=== PATIENT | female | born 1965 | race Caucasian/White ===

== ENCOUNTER 2019-07-05 23:49 | Observation (INO) | payer OTHER ==
--- NOTE | 2019-07-06 00:39 | P.HP ---
Certification for Inpatient Patient admitted to: Observation With expected LOS: <2 Midnights Patient will require the following post-hospital care: None Practitioner: I am a practitioner with admitting privileges, knowledge of patient current condition, hospital course, and medical plan of care. Services: Services provided to patient in accordance with Admission requirements found in Title 42 Section 412.3 of the Code of Federal Regulations Patient History Date of Service: 07/06/19 Reason for admission: Left lower extremity swelling and pain History of Present Illness: 53-year-old woman with a history of diabetes mellitus type 2, hypertension, hypercholesterolemia, chronic back pain, status post recent spinal fusion surgery, reports left lower extremity swelling and pain which has been present for 2 days. Patient called her spinal surgeons office to get refills for her medications. She complained of the left lower extremity swelling and she was directed to go to emergency department for evaluation. Patient was seen at [facility] where she was noted to have severely elevated D-dimer. Venous Doppler of the left lower extremity reported from acute femoral vein DVT. Patient was given a shot of Lovenox. Dr. Duron called for patient to be transferred to [facility] to be hospitalized for further management. At the moment patient is able to ambulate without support and denied poor functional status after the spine surgery. She remembers sitting down for several hours most of the time after the surgery. Allergies cephalexin [From Keflex] Allergy (Verified 07/06/19 00:38) Anaphylaxis Home medications list reviewed: Yes Home Medications: Atorvastatin Calcium 10 mg PO BEDTIME 07/06/19 Cyclobenzaprine [Flexeril*] 10 mg PO TID PRN 07/06/19 Hydrocodone 5/APAP 325 [[place] 5/325*] 1 tab PO Q4H PRN 07/06/19 Lisinopril/Hydrochlorothiazide [Lisinopril-Hctz 20-25 mg Tab] 1 tab PO BID 07/06 Omeprazole [Prilosec] 40 mg PO BID 07/06/19 Varenicline Tartrate [Chantix] 1 mg PO BID 07/06/19 - Past Medical/Surgical History Diabetic: Yes -: Sciatica -: Intervertebral disk disease -: Chronic back pain -: Diabetes mellitus type 2 -: Hypertension -: Hypercholesteremia -: GERD -: Multiple spine surgeries -: Knee surgery -: Hernia repair -: Neck surgery -: Oophorectomy - Family History Father -: Diabetes Mother -: Diabetes - Social History Smoking Status: Current every day smoker Alcohol use: Yes CD- Drugs: No Place of Residence: Home Review of Systems Other: General: No fever, no malaise, no unintentional weight loss. Eyes: No eye discharge, Respiratory: No cough, no shortness of breath. CVS: No chest pain, no palpitation, no lightheadedness. GI: No abdominal pain, no nausea no vomit, no constipation, no diarrhea. Genitourinary: No dysuria, no urinary frequency, no incontinence, no hematuria. Musculoskeletal: No joint pains, or joint swelling, no gait instability. Neurology: No headache, no asymmetric, weakness, no problem with swallowing. Except as documented, all other systems reviewed and negative. Physical Examination - Vital Signs Temperature: 98.4 F Blood Pressure: 121/64 Pulse: 115 Respirations: 16 Pulse Ox (%): 95 - Physical Exam General: Alert, In no apparent distress, Oriented x3 HEENT: Atraumatic, Normocephalic, PERRLA, Mucous membr. moist/pink Neck: Supple, JVD not distended Respiratory: Clear to auscultation bilaterally, Normal air movement Cardiovascular: Normal pulses, No murmurs, Other (Tachycardia), Edema (1+ left lower extremity edema) Capillary refill: <2 Seconds Gastrointestinal: Normal bowel sounds, Soft and benign, Non-distended, No tenderness Musculoskeletal: Swelling (Left lower extremity swelling extending from the foot to the thigh) Integumentary: Erythema (Left lower extremity) Neurological: Normal speech, Normal strength at 5/5 x4 extr, Cranial nerves 3- 12 intact - Studies Hemoglobin: 12.1 Platelet: 394 Creatinine: 0.6 Imagings Data: EKG: Sinus tachycardia Venous Doppler: Deep vein thrombosis within the left superficial femoral and left common femoral veins. Assessment and Plan - Problems (Diagnosis) (1) Acute deep vein thrombosis (DVT) Current Visit: Yes Status: Acute (2) Diabetes mellitus type 2 in obese Current Visit: Yes Status: Acute (3) Essential hypertension Current Visit: Yes Status: Acute (4) Hypocholesterolemia Current Visit: Yes Status: Acute (5) History of spinal surgery Current Visit: Yes Status: Acute (6) Tobacco use Current Visit: Yes Status: Acute - Plan Admit to [facility] with telemetry Start full-dose Lovenox anticoagulation. Monitor CBC Pain management with IV morphine, and [place] p.r.n. Obtain CTA thorax to rule out pulmonary embolism given tachycardia Bedrest with bathroom privileges for the next 24 hours. Keep left lower extremity elevated Continue Janumet for diabetes Continue lisinopril for hypertension. - Advance Directives Does patient have a Living Will: No Does patient have a Durable POA for Healthcare: No
[2019-07-06] MEDS ORDERED: ONDANSETRON 4 MG/2 ML VIAL IV PRN (00:49)
[2019-07-06] MEDS ORDERED: ACETAMINOPHEN 500 MG TAB PO PRN (00:49)
[2019-07-06] MEDS: NA CHLORIDE 0.9% 1,000 ML IV SCH ×2 (01:29→11:41)
[2019-07-06 01:34] LABS: Protime INR 1.08
[2019-07-06 06:49] LABS: Urine Appearance CLEAR; Urine Bilirubin NEGATIVE (NEG); Urine Blood NEGATIVE (NEG); Urine Color YELLOW; Urine Glucose NEGATIVE (NEG); Urine Protein NEGATIVE (NEG); Urine Urobilinogen 0.2 mg/dL (0.2-1.0)
[2019-07-06 06:50] LABS: Urine Microscopic Reflex ORDER UMIC
[2019-07-06 07:00] LABS: Urine Bacteria 20-50 /HPF (<20); Urine Culture Reflex Order REFLEXED; Urine RBC <5 /HPF (NONE SEEN)
[2019-07-06] MEDS: MORPHINE 2 MG/ML SYR IV PRN ×3 (07:18→20:43)
[2019-07-06] MEDS: INSULIN -REGULAR HUMAN 50 UNIT/0.5 ML ML SQ SCH ×4 (07:30→20:57)
--- NOTE | 2019-07-06 08:13 | RAD REPORT ---
EXAM DESCRIPTION: CT - Chest For Pe Angio - 07/06/2019 7:40 am CLINICAL HISTORY: Acute left LE DVT COMPARISON: No comparisons TECHNIQUE: Dynamically enhanced 3 mm thick images of the chest were obtained during administration o f approximately 150mL Isovue 370 IV contrast. Coronal and oblique MIP reconstruction images were gene rated and reviewed. Exam utilizes a protocol to evaluate the pulmonary arterial tree. All CT scans are performed using dose optimization technique as appropriate and may include automated exposure control or mA/KV adjustment according to patient size. FINDINGS: No pulmonary emboli are identified. The aorta as imaged shows no acute or suspicious finding. No pericardial thickening or effusion. No infiltrate or mass in the lung parenchyma. No pleural effusion or pleural thickening. No mediastinal or hilar suspicious masses. No chest wall masses or abnormal axillary lymphadenopathy. Limited upper abdomen imaging shows diffuse fatty infiltration of the liver. IMPRESSION: No pulmonary emboli identified. No other significant chest finding. Diffuse fatty infiltration of a partially imaged liver.
[2019-07-06] MEDS: CYCLOBENZAPRINE 10 MG TAB PO SCH ×3 (08:14→20:57)
[2019-07-06] MEDS: ENOXAPARIN 60 MG/0.6 ML SQ SCH ×2 (08:15→20:42)
[2019-07-06] MEDS: CIPROFLOXACIN 400mg IV 400 MG/200 ML BAG IV SCH ×2 (11:43→20:41)
--- NOTE | 2019-07-06 11:48 | PN ---
Date of Progress Note: 07/06/2019 Subjective: Patient is seen and examined, chart reviewed, and case discussed with RN. Patient complaining of some swelling and pain in her left lower extremity. Patient had recent surgery 3 weeks ago on her spine. Medications List: Reviewed. Physical Examination: Vital Signs: Temperature 98.4, heart rate 115, blood pressure 121/64, respirations 16, O2 95% on room air. General: Awake, alert, oriented x3. No acute distress. CV: S1, S2. Sinus tachycardia. Peripheral pulses present. Respiratory: Moving air well bilaterally. No wheezing or stridor. No use of accessory muscles. Gastrointestinal: Abdomen is soft, nontender, nondistended. Positive bowel sounds. No guarding or rigidity. Extremities: No clubbing or cyanosis. Patient has edema of the left lower extremity. Right lower extremity does not have any edema. Neurologic: Nonfocal. Cranial nerves 2 through 12 intact grossly. No focal neurological deficit. Speech is normal. Laboratory Data: UA: Negative nitrite, 2+ leukocyte esterase, 20-50 WBC, 10- 20 squamous epithelial cells, 20-50 urine bacteria. INR 1.08. Urine cultures pending. Assessment And Plan: A 53-year-old female with: 1. Acute deep vein thrombosis of the left common femoral vein. As the patient is on therapeutic Lovenox, we will need to switch over to oral anticoagulation. Deep vein thrombosis is likely provoked due to history of recent surgery. 2. Diabetes mellitus type 2 with hyperglycemia. We will continue with sliding scale insulin and monitor blood glucose levels. 3. Essential hypertension, stable. We will resume home medications as appropriate. 4. Mixed hyperlipidemia. Continue statin. 5. History of recent spinal surgery and chronic back pain. Patient is on chronic narcotics and muscle relaxants. Stable. 6. Nicotine dependence with cigarette smoking. Counseled. 7. Fatty liver disease. Counseled. 8. Obesity. Plan, we will continue to monitor. 9. Acute cystitis without hematuria. We will start on Cipro and follow up on urine culture. Disposition: Likely discharge in 24-48 hours depending on clinical response on oral anticoagulants. ADDENDUM: Adjust dose of lovenox SA/MODL Voice ID: [id number] Report ID: [id number] [facility]
[2019-07-06] MEDS: HYDROCODONE/APAP 5/325 MG TAB PO PRN (15:24)
[2019-07-06] MEDS: PANTOPRAZOLE 40MG TABLET PO SCH (17:07)
[2019-07-06] MEDS: ATORVASTATIN 10 MG TAB PO SCH (20:41)
[2019-07-06] MEDS: hydroCHLOROthiazide 25 MG TAB PO SCH (20:42)
[2019-07-06] MEDS: LISINOPRIL 20 MG TAB PO SCH (20:42)
[2019-07-06] MEDS: HOME MED 1 EA UNK (Varenicline Tartrate [Chantix] 1 MG) PO SCH (20:58)
[2019-07-07 00:33] VITALS: BMI 37.2
[2019-07-07] MEDS: NA CHLORIDE 0.9% 1,000 ML IV SCH ×3 (00:59→17:00)
[2019-07-07] MEDS: HYDROCODONE/APAP 5/325 MG TAB PO PRN ×3 (03:17→17:22)
[2019-07-07] MEDS: MORPHINE 2 MG/ML SYR IV PRN ×3 (05:42→20:29)
[2019-07-07 07:08] LABS: Absolute Lymphocytes (CBC) 1.5 K/uL (0.7-4.9); Basophils % 0.6 % (0-1.3); Hematocrit 28.7 % (36.0-45.0); Lymphocytes % 25.1 % (15.3-44.8); MPV 9.2 fL (7.6-11.3); RBC Red Blood Cell Count 3.37 M/uL (3.86-4.86)
[2019-07-07 07:16] LABS: BUN Blood Urea Nitrogen 3 mg/dL (7-18); Bicarbonate 31 mmol/L (21-32); Glucose Level 140 mg/dL (74-106); Magnesium 1.8 mg/dL (1.8-2.4); Phosphorus 3.1 mg/dL (2.5-4.9); Potassium 3.8 mmol/L (3.5-5.1); Sodium Level 142 mmol/L (136-145)
[2019-07-07] MEDS: INSULIN -REGULAR HUMAN 50 UNIT/0.5 ML ML SQ SCH ×4 (07:30→20:20)
[2019-07-07] MEDS ORDERED: MAGNESIUM SULFATE 1 gm IVPB 1 GM/100 ML BAG IV ONE ×2 (09:00→15:30)
[2019-07-07] MEDS ORDERED: POTASSIUM CL SA 10 MEQ TAB PO ONE (09:00)
[2019-07-07] MEDS: HOME MED 1 EA UNK (Varenicline Tartrate [Chantix] 1 MG) PO SCH ×2 (09:00→20:20)
[2019-07-07] MEDS: CYCLOBENZAPRINE 10 MG TAB PO SCH ×3 (09:40→20:18)
[2019-07-07] MEDS: PANTOPRAZOLE 40MG TABLET PO SCH ×2 (09:40→17:19)
[2019-07-07] MEDS: LISINOPRIL 20 MG TAB PO SCH ×2 (09:41→20:18)
[2019-07-07] MEDS: hydroCHLOROthiazide 25 MG TAB PO SCH ×2 (09:41→20:18)
[2019-07-07] MEDS: CIPROFLOXACIN 400mg IV 400 MG/200 ML BAG IV SCH ×2 (09:42→20:17)
[2019-07-07] MEDS: ENOXAPARIN 60 MG/0.6 ML SQ SCH (09:42)
--- NOTE | 2019-07-07 11:33 | PN ---
Date of Progress Note: 07/07/2019 Subjective: Patient seen and examined. Chart reviewed and case discussed with RN. Family at the bedside. Treatment plan explained, all questions answered. Patient's swelling is still very significant. Patient has dull pain. Patient may need transfer for thrombectomy if not improving. Medications: List reviewed. Physical Examination: Vital Signs: Temperature 97.6, heart rate 95, blood pressure 118/59, respirations 18, O2 95% on room air. General: Awake, alert, oriented x3, in some mild distress, obese female. CV: S1, S2. Regular rate and rhythm. Peripheral pulses present. Respiratory: Moving air well bilaterally. No wheezing or stridor. No use of accessory muscles. Gastrointestinal: Abdomen is soft, nontender, nondistended. Positive bowel sounds. Extremities: No clubbing or cyanosis. Patient has edema of the left lower extremity. Neurologic: Nonfocal sensation, intact to light touch. Laboratory Data: Sodium 142, potassium 3.8, chloride 107, CO2 31, BUN 3, creatinine 0.55, glucose 140, calcium 8.7, phosphorus 3.1, magnesium 1.8. WBC 5.8, H and H 10.7 and 28.7, platelets 249. Urine culture growing out mixed krystian. Assessment And Plan: A 53-year-old female with: 1. Acute deep vein thrombosis of the left common femoral vein. Continue with therapeutic Lovenox. Edema is not improving. Patient continues to have pain. This is likely a provoked deep vein thrombosis due to history of recent surgery and nonambulatory status. We will measure calf and thigh daily Doppler pulses. Possibility of thrombectomy if not improving. . Patient had incorrect weight placed in chart and therefore pharmacy dosed Lovenox at 60 mg will adjust to 100 mg. Patient has been updated. Charge nurse notified 2. Diabetes mellitus type 2 with hyperglycemia. We will continue with sliding scale insulin and monitor blood glucose levels. 3. Essential hypertension, stable. Patient currently somewhat hypotensive. We will hold blood pressure medications for systolic less than 90. 4. Mixed hyperlipidemia. Continue statin. 5. History of recent spinal surgery and chronic back pain. Patient on chronic narcotics and muscle relaxants, stable. Incision sites clean, dry, intact. 6. Nicotine dependence with cigarette smoking, counseled. 7. Fatty liver disease. 8. Obesity, BMI 37. Counseled. 9. Acute cystitis without hematuria. Continue Cipro. Cultures pending, no growth to date. If no improvement, may need transfer for thrombectomy. /ANIL Voice ID: [id number] Report ID: [id number] [facility]
[2019-07-07] MEDS: ATORVASTATIN 10 MG TAB PO SCH (20:17)
[2019-07-07] MEDS: ENOXAPARIN 100 MG/ML SYR SQ SCH (20:19)
[2019-07-08 02:14] VITALS: O2SAT 96
[2019-07-08] MEDS: HYDROCODONE/APAP 5/325 MG TAB PO PRN ×3 (02:53→18:44)
[2019-07-08 04:30] LABS: BUN Blood Urea Nitrogen 2 mg/dL (7-18); Bicarbonate 31 mmol/L (21-32); Glucose Level 167 mg/dL (74-106); Magnesium 1.6 mg/dL (1.8-2.4); Potassium 3.4 mmol/L (3.5-5.1); Sodium Level 141 mmol/L (136-145)
[2019-07-08] MEDS: NA CHLORIDE 0.9% 1,000 ML IV SCH ×2 (06:42→13:00)
[2019-07-08] MEDS: INSULIN -REGULAR HUMAN 50 UNIT/0.5 ML ML SQ SCH ×3 (07:30→16:30)
[2019-07-08] MEDS: HOME MED 1 EA UNK (Varenicline Tartrate [Chantix] 1 MG) PO SCH (09:00)
[2019-07-08] MEDS: ENOXAPARIN 100 MG/ML SYR SQ SCH ×2 (09:43→19:43)
[2019-07-08] MEDS: PANTOPRAZOLE 40MG TABLET PO SCH ×2 (09:43→16:50)
[2019-07-08] MEDS: LISINOPRIL 20 MG TAB PO SCH (09:43)
[2019-07-08] MEDS: hydroCHLOROthiazide 25 MG TAB PO SCH (09:43)
[2019-07-08] MEDS: CYCLOBENZAPRINE 10 MG TAB PO SCH ×2 (09:44→13:59)
[2019-07-08] MEDS: CIPROFLOXACIN 400mg IV 400 MG/200 ML BAG IV SCH (09:44)
[2019-07-08] MEDS: MORPHINE 2 MG/ML SYR IV PRN ×2 (09:47→16:49)
[2019-07-08 16:43] VITALS: BP 173/88; TEMP 98.4
--- NOTE | 2019-07-08 17:38 | PN ---
Date of Progress Note: 07/08/2019 Subjective: Patient seen and examined. Chart reviewed and case discussed with RN. Patient has had improvement in her swelling. Pain is significantly improved. Medications: List reviewed. Physical Examination: Vital Signs: Temperature 97.3, heart rate 91, blood pressure 135/83, respirations 17, O2 94% on room air. General: Awake, alert, oriented x3. Obese female, CV: S1, S2. Regular rate and rhythm. Peripheral pulses present. Respiratory: Moving air well bilaterally. No wheezing or stridor. No use of accessory muscles. Gastrointestinal: Abdomen is soft, nontender, nondistended. Positive bowel sounds. Extremities: No clubbing or cyanosis. Edema of the left lower extremity, improving. Neurologic: Nonfocal. Laboratory Data: Sodium 141, potassium 3.4, chloride 105, CO2 of 31, BUN 2, creatinine 0.63, glucose 167, calcium 8.7, magnesium 1.6. Urine culture growing out mixed krystian. Assessment: A 53-year-old female with; 1. Acute deep venous thrombosis of the left common femoral vein. Continue with therapeutic Lovenox. Edema is significantly improved. The pain is improving as well. No need for thrombectomy. 2. Diabetes mellitus type 2 with hyperglycemia. We will continue sliding scale insulin and monitor blood glucose levels. Stable. 3. Essential hypertension. Stable. Hold blood pressure medications for blood pressure less than 90 systolic, currently in the 130s systolic. 4. Mixed hyperlipidemia. Continue statin. 5. History of recent spinal surgery and chronic back pain. We will continue on narcotics and muscle relaxants. Incision site clean, dry, intact. 6. Nicotine dependence with cigarette smoking. Counseled. 7. Fatty liver disease. 8. Obesity, BMI>30 9. Acute cystitis without hematuria, likely asymptomatic bacteriuria. Cultures show mixed krystian. We will discontinue Cipro. Plan: Likely discharge if continues to improve. Check pulses and neurovascular assessment of the left lower extremity. Doppler pulses if necessary, measure thigh and calf daily. Switch to oral anticoagulant on discharge. /ANIL Voice ID: [id number] Report ID: [id number] [facility]
--- NOTE | 2019-07-15 08:07 | P.DS ---
Discharge Date: 07/08/19 Disposition: ROUTINE DISCHARGE Discharge Condition: FAIR Reason for Admission: Left lower extremity swelling and pain Brief History of Present Illness: 53-year-old woman with a history of diabetes mellitus type 2, hypertension, hypercholesterolemia, chronic back pain, status post recent spinal fusion surgery, reports left lower extremity swelling and pain which has been present for 2 days. Patient called her spinal surgeons office to get refills for her medications. She complained of the left lower extremity swelling and she was directed to go to emergency department for evaluation. Patient was seen at [facility] where she was noted to have severely elevated D-dimer. Venous Doppler of the left lower extremity reported from acute femoral vein DVT. Patient was given a shot of Lovenox. Dr. Lobo called for patient to be transferred to [facility] to be hospitalized for further management. At the moment patient is able to ambulate without support and denied poor functional status after the spine surgery. She remembers sitting down for several hours most of the time after the surgery. Hospital Course: Patient received her last shot of Lovenox this evening and will be discharged home. She will continue with her Xarelto at home. Follow-up with her PCP in 1- 2 weeks. Vital Signs/Physical Exam: Temp Pulse Resp BP Pulse Ox 98.4 F 107 H 18 173/88 H 96 07/08/19 16:00 07/08/19 16:00 07/08/19 17:19 07/08/19 16:00 07/08/19 17:19 General: Alert, In no apparent distress, Oriented x3 Laboratory Data at Discharge: WBC 5.8 K/uL (4.3-10.9) 07/07/19 05:58 Hgb 9.7 g/dL (12.0-15.0) L 07/07/19 05:58 Hct 28.7 % (36.0-45.0) L 07/07/19 05:58 Plt Count 249 K/uL (152-406) 07/07/19 05:58 PT 12.7 SECONDS (9.5-12.5) H 07/06/19 01:13 INR 1.08 07/06/19 01:13 Sodium 141 mmol/L (136-145) 07/08/19 03:31 Potassium 3.4 mmol/L (3.5-5.1) L 07/08/19 03:31 BUN 2 mg/dL (7-18) L 07/08/19 03:31 Creatinine 0.63 mg/dL (0.55-1.3) 07/08/19 03:31 Glucose 167 mg/dL (74-106) H 07/08/19 03:31 Phosphorus 3.1 mg/dL (2.5-4.9) 07/07/19 05:58 Magnesium 1.6 mg/dL (1.8-2.4) L 07/08/19 03:31 Home Medications: Atorvastatin Calcium 10 mg PO BEDTIME 07/06/19 Cyclobenzaprine [Flexeril*] 10 mg PO TID PRN 07/06/19 Hydrocodone 5/APAP 325 [[place] 5/325*] 1 tab PO Q4H PRN 07/06/19 Lisinopril/Hydrochlorothiazide [Lisinopril-Hctz 20-25 mg Tab] 1 tab PO BID 07/06 Omeprazole [Prilosec] 40 mg PO BID 07/06/19 Varenicline Tartrate [Chantix] 1 mg PO BID 07/06/19 Rivaroxaban [Xarelto] 15 mg PO BID #40 tablet 07/08/19 Rivaroxaban [Xarelto] 20 mg PO DAILY #30 tablet 07/08/19 New Medications: Rivaroxaban [Xarelto] 15 mg PO BID #40 tablet Rivaroxaban [Xarelto] 20 mg PO DAILY #30 tablet Patient Discharge Instructions: f/up w PCP in 2-3 days. 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 Return to ER for worsening condition Diet: ADA Activity: Ad preeti Time spent managing pt's care (in minutes): 25
== END 2019-07-08 20:05 | disposition home or self-care (01) ==
LOC: INTOOBSV 23:59 → OBSVTOIN 23:59 → 4TH 23:59 → INTOOBSV 07-07 09:57 → OBSVTOIN 07-07 09:57
PROVIDERS: ADMIT Internal Medicine; ATTEND Internal Medicine
DX: I82.4Z2 Acute embolism and thrombosis of unspecified deep veins of left distal lower extremity (principal); E11.65 Type 2 diabetes mellitus with hyperglycemia; I10 Essential (primary) hypertension; E78.00 Pure hypercholesterolemia, unspecified; E66.9 Obesity, unspecified; Z68.37 Body mass index [BMI] 37.0-37.9, adult; F17.210 Nicotine dependence, cigarettes, uncomplicated; K76.0 Fatty (change of) liver, not elsewhere classified; M54.9 Dorsalgia, unspecified
CPT/HCPCS: 87088; 85025; 87086; 80048 ×2; 36415 ×3; 83735 ×2; 84100; 85610; 82962 ×11; 71275; 94760 ×5; Q9967; J3475 ×2; J1650 ×7; J2270 ×8; J7030 ×6; J0744 ×5; G0378 ×4; 81003; 81015